=== PATIENT | female | born 1985 | race Caucasian/White ===

== ENCOUNTER 2023-12-12 13:41 | Emergency (ER) | payer MEDICAID ==
[~2023-12-12] VITALS: Ht 167.6 cm; Wt 90.3 kg
[2023-12-12 14:01] VITALS: BP 118/83; PULSE 98; RESP 16; TEMP 98.9; O2SAT 95
== END 2023-12-12 14:20 | disposition home or self-care (01) ==
LOC: ER 13:42
DX: S71.131A Puncture wound without foreign body, right thigh, initial encounter (principal); W57.XXXA Bitten or stung by nonvenomous insect and other nonvenomous arthropods, initial encounter; Y93.89 Activity, other specified; Y92.89 Other specified places as the place of occurrence of the external cause; Y99.8 Other external cause status
CPT/HCPCS: 99282

== ENCOUNTER 2025-06-25 01:10 | Emergency (ER) | payer MEDICAID ==
[~2025-06-25] VITALS: Ht 167.6 cm; Wt 90.0 kg
[2025-06-25 01:15] VITALS: TEMP 98
[2025-06-25 02:18] LABS: MEAN PLATELET VOLUME 8.5 FL (7.4-10.4); RED CELL DISTRIBUTION WIDTH 15.0 % (11.5-14.5)
--- NOTE | 2025-06-25 02:34 | Physician Documentation ---
History of Present Illness ~ Chief Complaint: Mental Health Eval Stated Complaint: GILES EVHANSEL FOR POST PARDOM Time Seen by MD: 02:33 Mode of Arrival: POV, Ambulatory HPI 31-year-old female, possible history of bipolar disorder, who presents with multiple symptoms Here in the ED, the patient initially was quite anxious appearing and difficult to redirect. By time of my evaluation, she ate some food in his lying comfortably in bed with a blanket. She tells me that she has had a lot stress in her life recently related to a child and court appearances. She tells me she was at a facility and was medically cleared yesterday and discharged. She was told she has bipolar disorder and is on medications, but she is not convinced that she actually is bipolar. When I evaluate her, she tells me she is feeling much better and would like to just go home. She tells me she is staying at a hotel and has a safe place to go. She denies suicidal ideation or thoughts of harming others. She is able to take care of herself, is eating and drinking and doing her normal ADLs. She has her medications and does not need a refill. She thanked me for listening to her. She requests to just go home. Medication Reconciliation Allergies: Coded Allergies: olanzapine (Verified Allergy, Intermediate, 06/25/25) Uncoded Allergies: ADVAIR (Allergy, Unknown, 12/12/23) Review of Systems Psychiatric: Reports: anxiety, sleeplessness; Denies: suicidal, hallucinations Physical Exam Vital Signs: Temperature: 98.0, Heart Rate: 125, Respiratory Rate: 16, BP: 132/94, Pulse Oximetry: 98, Weight: 90.000 Physical Exam General: This is an anxious appearing young woman, with slightly pressured speech HEENT: Atraumatic, oropharynx is moist Heart: Mild tachycardic, appears regular Lungs: normal work of breathing, normal oxygen saturation on room air Extremities: Warm and well-perfused Neuro: Alert and oriented Psychiatric: The patient has slightly pressured speech, but is redirectable. She does make some bizarre statements. She is not clearly responding to internal stimuli. She is cooperative. She denies suicidal ideation or homicidal thoughts Progress Results/Orders Results/Orders Completed Orders - CHERRIE GOYAL MD TSH (06/25/25 01:47) Drug Screen, Urine (06/25/25 01:47) Ethanol (06/25/25 01:47) CMP (06/25/25 01:47) Cbc/Diff (06/25/25 01:47) Ua With Microscopic (06/25/25 02:37) Vital Signs 06/25/25 06/25/25 06/25/25 01:15 01:59 02:59 Temp 98.0 Pulse 125 82 Resp 18 16 16 B/P (MAP) 132/94 122/76 Pulse Ox 98 98 Laboratory Tests Test 06/25/25 02:09 06/25/25 02:37 White Blood Count 6.8 Red Blood Count 5.19 Hemoglobin 14.8 Hematocrit 44.1 Mean Corpuscular Volume 84.9 Mean Corpuscular Hemoglobin 28.5 Mean Corpuscular Hemoglobin Concent 33.6 Red Cell Distribution Width 15.0 H Platelet Count 273 Mean Platelet Volume 8.5 Neutrophils (%) (Auto) 71.1 Lymphocytes (%) (Auto) 21.6 Monocytes (%) (Auto) 6.7 Eosinophils (%) (Auto) 0.4 Basophils (%) (Auto) 0.2 Neutrophils # (Auto) 4.9 Lymphocytes # (Auto) 1.5 Monocytes # (Auto) 0.5 Eosinophils # (Auto) 0.0 Basophils # (Auto) 0.0 CBC Comment Sodium Level 142 Potassium Level 3.8 Chloride Level 104 Carbon Dioxide Level 29.0 Anion Gap 9 Blood Urea Nitrogen 15 Creatinine 0.74 Estimated GFR/1.73 m2 88 BUN/Creatinine Ratio 20.3 H Glucose Level 99 Calcium Level 9.7 Total Bilirubin 0.3 Aspartate Amino Transf (AST/SGOT) 30 Alanine Aminotransferase (ALT/SGPT) 56 Alkaline Phosphatase 114 Total Protein 8.1 Albumin 4.3 Globulin 3.8 Albumin/Globulin Ratio 1.1 Thyroid Stimulating Hormone (TSH) 1.87 Chemistry Comments Ethyl Alcohol Level < 10 Urine Specimen Description Voided Urine Color Yellow Urine Clarity Clear Urine pH 7.5 Urine Specific [place] 1.010 Urine Protein Negative Urine Glucose (UA) Negative Urine Ketones Negative Urine Occult Blood Moderate H Urine Nitrite Positive H Urine Bilirubin Negative Urine Urobilinogen 0.2 Urine Leukocyte Esterase Moderate H Urine RBC 3-10 Urine WBC 10-20 H Urine Squamous Epithelial Cells Few Urine Bacteria 3+ Volume Urine Centrifuged 10 ml Urine Comment Urine Opiates Screen Negative Urine Methadone Screen Negative Urine Fentanyl Screen Negative Urine Barbiturates Screen Negative Urine Phencyclidine Screen Negative Urine Amphetamines Screen Negative Urine Benzodiazepines Screen Negative Urine Cocaine Screen Negative Urine Cannabinoids Screen Negative Drug Screen Comment Medical Decision Making Differential Diagnosis The patient presents with bizarre behavior, and initially appears quite anxious and with pressured speech. By time of my evaluation, she had a snack and a blanket, and was much calmer. After I listened to her talk for awhile, she said that she felt better and just wanted to go back to her hotel. She denied suicidal ideation, does not appear to be a danger to herself or others. She appears well nourished and appears to be able to take care of herself. She does have some symptoms to suggest bipolar disorder or other underlying psychiatric illness, but does not meet criteria for a mental health hold. She was allowed to be discharged at her request. She declined any further workup, declined to stay and see our mental health specialist. She was encouraged to return if she has worsening symptoms. Departure Time of Disposition: 02:53 Disposition: 01 HOME / SELF CARE / HOMELESS Impression: Primary Impression: Anxiety Condition: Improved Referrals: NO PRIMARY CARE PROVIDER (PCP) Education Educated: Patient Educated regarding: diagnosis, treatment, need for follow up Signature Scribe Signature: na Attestation: CHERRIE Lanier MD Jun 25, 2025 02:33
[2025-06-25 02:48] LABS: CREATININE 0.74 MG/DL (0.40-0.90); TOTAL CARBON DIOXIDE 29.0 MMOL/L (24-32); eCRCL 97 ML/MIN; eGFR 88 ML/MIN
[2025-06-25 02:52] LABS: ETHANOL < 10 MG/DL (<10)
[2025-06-25 02:59] VITALS: BP 122/76; PULSE 82; RESP 16; O2SAT 98
[2025-06-25 03:06] LABS: LEUKOCYTE ESTERASE ,URINE MODERATE (Neg); NITRITES, URINE POSITIVE (Neg); OCCULT BLOOD,URINE MODERATE (Neg)
[2025-06-25 03:12] LABS: UA COLLECTION TYPE VOIDED
[2025-06-25 03:16] LABS: SQUAMOUS EPITHELIAL CELL,UR FEW /LPF (FEW)
[2025-06-25 03:32] LABS: URINE AMPHETAMINE SCREEN NEGATIVE (Neg); URINE BARBITUATE SCREEN NEGATIVE (Neg); URINE BENZODIAZEPINES SCREEN NEGATIVE (Neg); URINE CANNABINOID SCREEN NEGATIVE (Neg); URINE COCAINE SCREEN NEGATIVE (Neg); URINE METHADONE SCREEN NEGATIVE (Neg); URINE OPIATE SCREEN NEGATIVE (Neg); URINE PHENCYCLIDINE SCREEN NEGATIVE (Neg)
== END 2025-06-25 03:01 | disposition home or self-care (01) ==
LOC: EEVIPCON 01:10 → ER 01:10
DX: F41.9 Anxiety disorder, unspecified (principal); F31.9 Bipolar disorder, unspecified; R00.0 Tachycardia, unspecified; Z88.8 Allergy status to other drugs, medicaments and biological substances
CPT/HCPCS: 36415; 80053; 80305; 80320; 81001; 84443; 85025; 99283

== ENCOUNTER 2025-06-27 19:14 | Emergency (ER) | payer MEDICAID ==
[~2025-06-27] VITALS: Ht 167.6 cm; Wt 83.2 kg
--- NOTE | 2025-06-27 19:17 | Physician Documentation ---
History of Present Illness ~ Stated Complaint: Time Seen by MD: 19:17 HPI 39-year-old female, presenting with bizarre behavior The patient reports a history of depression. She has been in a facility recently for treatment. She presents today by ambulance. She is quite disorganized, does make some bizarre statements, brought multiple belongings from home including a framed painting of her as a young child. History is difficulty obtained. She does tell me that she is taking psychiatric medications but does not think they are helping. She thinks she has some version of bipolar disorder. She feels manic. She denies suicidal ideation or physical self-harm today. She denies thoughts of harming others. She does feel like she needs help. I received a phone call from the patient's . He tells me that she is depression and has been having very erratic behavior. She is 4 months . She has been on Vraylar, for about 5 or 6 days. He thinks she has been taking it. He reports bizarre and abnormal behaviors including that today she took all differential out of the house and put it in the rain. He has a infant at home. He says she has called 911 at least 10 times this week. He feels that she needs psychiatric evaluation. Medication Reconciliation Allergies: Coded Allergies: olanzapine (Verified Allergy, Intermediate, 06/25/25) Uncoded Allergies: ADVAIR (Allergy, Unknown, 12/12/23) Scheduled Cariprazine Hydrochloride (Vraylar), 1 CAP PO DAILY, (Reported) Scheduled PRN Hydroxyzine Hcl* (Atarax*), 1 TAB PO DAILY PRN for insomnia, (Reported) Review of Systems Constitutional: Denies: fever Psychiatric: Reports: depression, anxiety, sleeplessness; Denies: suicidal Physical Exam Physical Exam General: This is a young female with multiple home belongings including a framed painting, an hourglass that is actively draining sand, and a tape deck with a [employer] sound trach tape HEENT: Atraumatic, oropharynx is moist Heart: Mild tachycardic, appears regular Lungs: normal work of breathing, normal oxygen saturation on room air Extremities: No traumatic findings Neuro: Alert and oriented Psychiatric: Labile affect, make some bizarre statements, has pressured speech, difficult to redirect, denies suicidal ideation or plan Progress Results/Orders Results/Orders Vital Signs 06/27/25 06/27/25 19:17 21:38 Temp 98.4 Pulse 101 Resp 16 26 B/P (MAP) 142/100 Pulse Ox 96 O2 Flow Rate 0 Laboratory Tests Test 06/27/25 19:25 06/27/25 19:28 White Blood Count 7.5 Red Blood Count 4.85 Hemoglobin 13.7 Hematocrit 41.0 Mean Corpuscular Volume 84.5 Mean Corpuscular Hemoglobin 28.4 Mean Corpuscular Hemoglobin Concent 33.6 Red Cell Distribution Width 14.5 Platelet Count 278 Mean Platelet Volume 8.5 Neutrophils (%) (Auto) 57.5 Lymphocytes (%) (Auto) 33.1 Monocytes (%) (Auto) 6.6 Eosinophils (%) (Auto) 2.1 Basophils (%) (Auto) 0.7 Neutrophils # (Auto) 4.3 Lymphocytes # (Auto) 2.5 Monocytes # (Auto) 0.5 Eosinophils # (Auto) 0.2 Basophils # (Auto) 0.1 CBC Comment Sodium Level 142 Potassium Level 3.7 Chloride Level 104 Carbon Dioxide Level 29.2 Anion Gap 9 Blood Urea Nitrogen 19 H Creatinine 0.73 Estimated GFR/1.73 m2 89 BUN/Creatinine Ratio 26.0 H Glucose Level 99 Calcium Level 8.7 Albumin 3.7 Thyroid Stimulating Hormone (TSH) 1.96 Chemistry Comments Ethyl Alcohol Level < 10 Urine Specimen Description Cln catch midstream Urine Color Yellow Urine Clarity Clear Urine pH 6.0 Urine Specific [place] 1.015 Urine Protein Negative Urine Glucose (UA) Negative Urine Ketones Negative Urine Occult Blood Negative Urine Nitrite Negative Urine Bilirubin Negative Urine Urobilinogen 0.2 Urine Leukocyte Esterase Negative Volume Urine Centrifuged 10 ml Urine HCG, Qualitative Negative Urine Comment Urine Opiates Screen Negative Urine Methadone Screen Negative Urine Fentanyl Screen Negative Urine Barbiturates Screen Negative Urine Phencyclidine Screen Negative Urine Amphetamines Screen Negative Urine Benzodiazepines Screen Negative Urine Cocaine Screen Negative Urine Cannabinoids Screen Negative Drug Screen Comment Consults/PCP Consults/PCP : Additional Comment Mental health team consulted for evaluation Medical Decision Making Differential Dx:Considerations: Include: Anxiety, Bipolar disorder, Depression, Personality disorder, Substance abuse Differential Diagnosis The patient presents with bizarre behavior. She has a reported history of depression with bipolar type symptoms. Here in the ED, she has a very labile affect, bizarre behavior, and after speaking to her he also reports bizarre behavior at home. She appears acutely psychotic and disorganized, and I feel that she is gravely disabled at this time and will be placed on a 1799 hold. Mental screening labs are unremarkable. She was given Haldol and Benadryl. She is medically cleared for mental health evaluation. Departure Impression: Primary Impression: Shanika Additional Instructions: Transfer orders for [facility]: At this time there is no evidence of an emergent medical condition that would preclude (admission/transfer) to a psychiatric unit via [facility] protocol for further psychiatric, as well as medical evaluation and treatment. At this time I have no reason to believe that transfer via [facility] protocol would have serious medical compromise in the patient's health. Referrals: NO PRIMARY CARE PROVIDER (PCP) Signature Scribe Signature: lc Attestation: na Addendum Pt signed out to me as part of their psychiatric ED evaluation. Pt resting well. Vital signs within expected ranges. Brief Physical Examination: Alert and appropriately oriented. No signs of respiratory distress. Able to ambulate and move all extremities. Medical evaluation does not indicate metabolic derangement. Awaiting final disposition. Though possibly present, patient's symptoms are more consistent with psychiatric concerns than syndromes related to recreational drug use. No evidence of DT's while in the ED during my shift. Ambulating without difficulty. Speaking in full sentences. Easily arousable and interactive. Hemodynamically stable. The patient is currently awaiting Behavioral Health final evaluation and disposition. CHERRIE GOYAL MD Jun 27, 2025 19:17 RUDY TOVAR MD Jun 28, 2025 06:14
[2025-06-27 19:42] LABS: MEAN PLATELET VOLUME 8.5 FL (7.4-10.4); RED CELL DISTRIBUTION WIDTH 14.5 % (11.5-14.5)
[2025-06-27 19:46] LABS: LEUKOCYTE ESTERASE ,URINE NEGATIVE (Neg); NITRITES, URINE NEGATIVE (Neg); OCCULT BLOOD,URINE NEGATIVE (Neg)
[2025-06-27 19:49] LABS: URINE HCG NEGATIVE (NEG)
[2025-06-27 19:53] LABS: URINE AMPHETAMINE SCREEN NEGATIVE (Neg); URINE BARBITUATE SCREEN NEGATIVE (Neg); URINE BENZODIAZEPINES SCREEN NEGATIVE (Neg); URINE CANNABINOID SCREEN NEGATIVE (Neg); URINE COCAINE SCREEN NEGATIVE (Neg); URINE METHADONE SCREEN NEGATIVE (Neg); URINE OPIATE SCREEN NEGATIVE (Neg); URINE PHENCYCLIDINE SCREEN NEGATIVE (Neg)
[2025-06-27 20:02] LABS: UA COLLECTION TYPE CLN CATCH MIDSTREAM
[2025-06-27 20:03] LABS: CREATININE 0.73 MG/DL (0.40-0.90); ETHANOL < 10 MG/DL (<10); TOTAL CARBON DIOXIDE 29.2 MMOL/L (24-32); eCRCL 98 ML/MIN; eGFR 89 ML/MIN
[2025-06-27] MEDS ORDERED: CARI1.5C PO (20:18)
[2025-06-27] MEDS ORDERED: HYDR-3686 PO (20:18)
[2025-06-27] MEDS: haloperidol lactate 5mg/ml inj IM ONE (21:39)
[2025-06-28] MEDS: CARIPRAZINE HYDROCHLORIDE 1.5 MG PO SCH (07:48)
[2025-06-28 12:26] VITALS: BP 108/73; PULSE 83; RESP 14; TEMP 98.4; O2SAT 95
== END 2025-06-28 12:52 | disposition home or self-care (01) ==
LOC: EEVIPCON 19:14 → ER 19:14
DX: F30.9 Manic episode, unspecified (principal); Z79.899 Other long term (current) drug therapy
CPT/HCPCS: 36415; 80048; 80305; 80320; 81003; 81025; 84443; 85025; 96372; 99284; J1200; J1630; J2060; Q0177